=== PATIENT | male | born 1990 | race Caucasian/White ===

== ENCOUNTER 2017-08-07 07:53 | Day surgery (SDC) | payer OTHER ==
[2017-08-07] MEDS ORDERED: LR 1,000 ML IV ×3 (08:00→12:15)
[2017-08-07] MEDS ORDERED: fentaNYL 100 MCG/2 ML INJECTION (J3010) As Ordered ×2 (08:10)
[2017-08-07] MEDS ORDERED: LIDOCAINE 2% INJ 100 MG/5 ML SYRINGE As Ordered (08:10)
[2017-08-07] MEDS ORDERED: PROPOFOL 200 MG/20 ML VIAL As Ordered (08:10)
[2017-08-07] MEDS ORDERED: MIDAZOLAM INJ 2 MG/2 ML VIAL (J2250) As Ordered (08:10)
[2017-08-07] MEDS ORDERED: ROCURONIUM BROMIDE 50 MG/5 ML VIAL As Ordered ×2 (08:10→10:04)
[2017-08-07] MEDS ORDERED: ePHEDrine SULFATE 25 MG/5 ML(5MG/ML) SYRINGE As Ordered (09:47)
[2017-08-07] MEDS: CEFAZOLIN SOD 1 GM in APPROPRIATE DILUENT 1 EA IV (09:51)
[2017-08-07] MEDS ORDERED: dexameTHASONE 4 MG/ML 1ML VIAL (J1100) As Ordered (10:05)
[2017-08-07] MEDS: LIDOCAINE W/EPINEPHRINE 1% 20ML VIAL As Ordered (10:08)
[2017-08-07] MEDS: BUPIVACAINE HCL 0.25% 10 ML VIAL As Ordered (10:08)
[2017-08-07] MEDS ORDERED: ONDANSETRON 4MG/2ML VIAL (J2405) As Ordered (11:19)
[2017-08-07] MEDS ORDERED: GLYCOPYRROLATE INJ 0.2 MG/ML 2 ML VIAL As Ordered (11:19)
[2017-08-07] MEDS ORDERED: KETOROLAC 60 MG/2 ML VIAL (J1885) As Ordered (11:19)
[2017-08-07] MEDS ORDERED: PERCOCET 5MG/325MG TAB As Ordered (12:01)
[2017-08-07] MEDS: PERCOCET 5MG/325MG TAB PO (12:02)
[2017-08-07] MEDS ORDERED: HYDROmorphone HCL 1 MG/ML SYRINGE (J1170) IV (12:15)
[2017-08-07] MEDS ORDERED: ONDANSETRON 4MG/2ML VIAL (J2405) IV ×2 (12:15)
[2017-08-07] MEDS ORDERED: MORPHINE 2 MG/ML 1ML SYRINGE (J2270) IV (12:15)
[2017-08-07] MEDS ORDERED: fentaNYL 100 MCG/2 ML INJECTION (J3010) IV (12:15)
[2017-08-07] MEDS: NORCO, ANEXSIA 5/325MG TABLET (HYDROcodone/ACETAMINOPHEN) PO (14:22)
[2017-08-07] MEDS ORDERED: KETOROLAC 30 MG/ML VIAL (J1885) IV (17:00)
== END 2017-08-07 15:15 | disposition home or self-care (01) ==
LOC: M SDC 07:53
DX: K40.90 Unilateral inguinal hernia, without obstruction or gangrene, not specified as recurrent (principal)
CPT/HCPCS: 49650

== ENCOUNTER → 2021-06-21 | Outpatient (CLI) | payer OTHER ==
[~2021-06-21] MED LIST: METHACHOLINE KIT (J7674) INH ONE
== END ==
LOC: M CARPUL 10:33
PROVIDERS: ATTEND Physician Assistant
DX: R06.00 Dyspnea, unspecified (principal)
CPT/HCPCS: 94070; J7674

== ENCOUNTER → 2021-07-25 | Outpatient (CLI) | payer OTHER | LOC: M CARPUL 13:51 | PROVIDERS: ATTEND Physician Assistant | DX: R68.89 Other general symptoms and signs (principal) ==